=== PATIENT | male | born 1965 | race Caucasian/White ===

== ENCOUNTER 2016-09-08 10:42 | Emergency (ER) | payer OTHER ==
[2016-09-08 10:50] VITALS: RESP 18
[2016-09-08] MEDS ORDERED: IBUPROFEN 600 MG TAB PO ONE (11:11)
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
[2016-09-08 12:48] VITALS: BP 150/85; PULSE 69; TEMP 97.7; O2SAT 98
== END 2016-09-08 12:45 | disposition home or self-care (01) ==
LOC: EDSEX 10:42
DX: S09.90XA Unspecified injury of head, initial encounter (principal); S46.811A Strain of other muscles, fascia and tendons at shoulder and upper arm level, right arm, initial encounter; H53.8 Other visual disturbances; V44.5XXA Car driver injured in collision with heavy transport vehicle or bus in traffic accident, initial encounter; Y92.410 Unspecified street and highway as the place of occurrence of the external cause; Y99.8 Other external cause status; Y93.89 Activity, other specified

== ENCOUNTER → 2016-10-26 | Outpatient (CLI) | payer OTHER | LOC: FIMAGING 15:14 | PROVIDERS: ATTEND Orthopaedic Surgery | DX: I82.441 Acute embolism and thrombosis of right tibial vein (principal) ==

== ENCOUNTER → 2016-12-08 | Outpatient (CLI) | payer OTHER | LOC: FIMAGING 13:02 | PROVIDERS: ATTEND Orthopaedic Surgery | DX: Z09 Encounter for follow-up examination after completed treatment for conditions other than malignant neoplasm (principal); Z86.718 Personal history of other venous thrombosis and embolism ==

== ENCOUNTER 2017-05-09 12:22 | Emergency (ER) | payer OTHER ==
--- NOTE | 2017-05-09 14:24 | EDPHY ---
General Narrative: CHIEF COMPLAINT: Ankle laceration HISTORY OF PRESENT ILLNESS: Patient was working on a shed when he pulled the board off and a piece of aluminum gutter fell, striking him on the left lower leg. This is the distal, anterior champion. Moderate bleeding that stopped with pressure. No numbness or tingling. Minimally painful. No difficulty ambulating. No injuries elsewhere. No glass or foreign body present. Tetanus is up-to-date. No other associated complaints or modifying factors. TIME OF INJURY: Less than 1 hour prior to arrival TETANUS STATUS: Up-to-date MEDICAL/SURGICAL/SOCIAL HISTORY: Orthopedic injuries in surgical interventions. Nonsmoker. 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 Originally from [place] REVIEW OF SYSTEMS: Ten systems reviewed and are negative unless otherwise noted in the HPI EXAMINATION General Appearance: Alert, no distress Head: normocephalic, atraumatic Cardiovascular: Pulses normal throughout. Symmetric DP pulses 2+. Brisk cap refill Neurological: A&O, sensory symmetric, strength symmetric. No footdrop. Skin: Warm and dry, no rash. Complex laceration of the left distal champion/ proximal ankle. 5 cm oblique. Exposure of the underlying extensor tendons. No foreign body. No pulsatile blood flow. Neurovascular intact distally Extremities: Tender in the area of laceration. Full and symmetric range of motion of the lower extremities. Neurovascular intact. DIFFERENTIAL DIAGNOSES: Including but not limited to laceration, complex laceration, laceration with tendon injury. Laceration with foreign body MDM: 1:25 p.m. Laceration left anterior ankle without deficit. No foreign body. Tetanus is up -to-date. Fully ambulatory and no indication for x-ray at this time. I have anesthetize the wound. Proceed with irrigation closure. 2:20 p.m. I have re-evaluated the wound and closed with suture repair, 2 layer. He remains neurovascular intact. No pulsatile blood flow. Excellent range of motion postprocedure. We discussed wound care. We placed in a dressing for 2 days. Prophylaxis with Keflex. Follow up here in 10-14 days for suture removal. Return sooner for signs of infection as discussed. He is comfortable this plan and discharged home stable condition. PROCEDURE: Laceration repair Consent: Verbal Location: Left anterior ankle Length of repair: 5 cm Complexity: Complex Layer involvement: 2 layer Anesthesia: Local. 1% lidocaine plain. 8 mL Irrigation: Extensive Debridement: None Procedure description: Following good anesthesia, the wound was copiously irrigated. Wound bed was explored and there is no foreign body noted. There is exposure of the extensor tendons but no injury to those. Wound borders were approximated well with good hemostasis. Tolerated well without complication. Suture/Staple material: Subcu layer: 5-0 Vicryl, 4 simple interrupted sutures. Cutaneous layer: 4-0 Prolene, 7 horizontal mattress sutures Wound care: Routine as discussed Suture/Staple removal: 10-14 Days ED Precautions: Worsening pain. Erythema, edema, cyanosis, pallor, paresthesia or anesthesia. - History Smoking Status: Never smoked - Objective Vital Signs: Initial Vital Signs Temperature (C) 99.0 F 05/09/17 12:35 Heart Rate 96 05/09/17 12:35 Respiratory Rate 16 05/09/17 12:35 Blood Pressure 116/70 05/09/17 12:35 O2 Sat (%) 98 05/09/17 12:35 O2 Delivery Mode Room Air Allergies/Adverse Reactions: No Known Allergies Allergy (Verified 05/09/17 12:47) Home Medications: Medication Instructions Recorded Cephalexin [Keflex (*)] 500 mg PO TID #30 cap 05/09/17 Departure - Departure Disposition: Home, Routine, Self-Care Clinical Impression: Laceration without foreign body, left ankle, initial encounter Condition: Good Instructions: Care For Your Stitches (ED), Laceration (ED) Additional Instructions: 1. Daily wound care as discussed 2. Keflex as prescribed to completion 3. ED precautions as discussed for signs of infection 4. Return to emergency department in 10-14 days for suture removal 5. Light weight-bearing until sutures removed Referrals: NONE *PRIMARY CARE P,. [Primary Care Provider] - As per Instructions Abner Iraheta DO [Doctor of Osteopathy] - As per Instructions Prescriptions: Cephalexin [Keflex (*)] 500 mg PO TID #30 cap
[2017-05-09 14:39] VITALS: BP 121/73; PULSE 84; RESP 18; TEMP 98.6; O2SAT 96
== END 2017-05-09 14:40 | disposition home or self-care (01) ==
PROC: 0HQLXZZ Repair Left Lower Leg Skin, External Approach (ICD-10-PCS; principal; 2017-05-09)
DX: S91.012A Laceration without foreign body, left ankle, initial encounter (principal); W20.8XXA Other cause of strike by thrown, projected or falling object, initial encounter

== ENCOUNTER → 2019-01-06 | Outpatient (CLI) | payer OTHER | LOC: BMCIMAGING 14:49 ==